=== PATIENT | female | born 1985 | race Caucasian/White ===

== ENCOUNTER 2024-02-16 16:00 | Emergency (ER) | payer SELFPAY ==
[~2024-02-16] VITALS: Ht 160 cm; Wt 82.1 kg
[2024-02-16 16:06] VITALS: BP_SYST 112; PULSE 72; RESP 16; TEMP 98.4; O2SAT 99
[2024-02-16 17:07] LABS: BASOPHILS % (AUTO) 0.4 % (0.0-2.0); EOSINOPHILS # (AUTO) 0.1 K/uL (0.0-0.4); EOSINOPHILS % (AUTO) 0.8 % (0.0-4.0); HEMATOCRIT 38.4 % (36-48); HEMOGLOBIN 12.8 g/dL (12.0-16.0); LYMPHOCYTES # (AUTO) 1.9 K/uL (1.0-5.5); LYMPHOCYTES % (AUTO) 24.2 % (20.5-51.5); MEAN CORPUSCULAR HEMOGLOBIN 28 pg (27-31); MEAN CORPUSCULAR HGB CONC 33 % (32-36); MEAN CORPUSCULAR VOLUME 82 fL (79.0-98.0); MONOCYTES # (AUTO) 0.8 K/uL (0.0-1.0); MONOCYTES % (AUTO) 10.5 % (1.7-9.3); NEUTROPHILS # (AUTO) 5.1 K/uL (1.8-7.7); NEUTROPHILS % (AUTO) 64.1 % (40.0-70.0); PLATELET COUNT (AUTO) 245 K/uL (130-430); RED BLOOD CELL COUNT(AUTO) 4.66 MIL/uL (4.2-6.2); RED CELL DISTRIBUTION WIDTH 13.6 % (9.0-15.0)
[2024-02-16 17:19] LABS: PROTHROMBIN TIME 10.4 SECS (9.5-12.5)
[2024-02-16 17:25] LABS: BILIRUBIN,URINE NEGATIVE (NEGATIVE); BLOOD, URINE 3+ (NEGATIVE); CLARITY/URINE CLOUDY (CLEAR); COLOR,URINE RED (YELLOW); GLUCOSE,URINE NEGATIVE (NEGATIVE); KETONES,URINE TRACE (NEGATIVE); LEUKOCYTE ESTERASE ,URINE NEGATIVE (NEGATIVE); NITRITE, URINE NEGATIVE (NEGATIVE); PROTEIN URINE 2+ (NEGATIVE); UROBILINOGEN,URINE 0.2 (0.2-1.0)
[2024-02-16 17:30] LABS: CALCIUM 8.8 mg/dL (8.4-11.0); CREATININE 0.93 mg/dL (0.55-1.30); POTASSIUM 3.5 mmol/L (3.5-5.1)
[2024-02-16 18:21] LABS: BACTERIA,URINE FEW /HPF (None Seen); RBC,URINE >100 /HPF (0-3); WBC,URINE 0-3 /HPF (0-3)
[2024-02-16 18:22] LABS: MUCUS,URINE 1+ /LPF (None Seen)
[2024-02-16 18:31] VITALS: BP_SYST 112; PULSE 72; RESP 16; TEMP 98.4; O2SAT 99
== END 2024-02-16 18:31 | disposition home or self-care (01) ==
LOC: SED 16:00
DX: N93.8 Other specified abnormal uterine and vaginal bleeding (principal); Z79.899 Other long term (current) drug therapy
CPT/HCPCS: 36415; 80048; 81000; 81001; 81015; 81025; 84702; 85025; 85610; 85730; 86900; 86901; 99283